=== PATIENT | male | born 1950 | race Hispanic/Latino ===

== ENCOUNTER 2024-07-27 10:25 | Emergency (ER) | payer MEDICARE ==
[~2024-07-27] VITALS: Ht 165.1 cm; Wt 83.5 kg
[2024-07-27 10:33] VITALS: TEMP 97.8
[2024-07-27 10:58] VITALS: PULSE 62; RESP 16
[2024-07-27] MEDS ORDERED: AMOX TR-K CLV1 EAC2 PO (11:00)
[2024-07-27] MEDS ORDERED: DOXYCYCLINE HY100 MG PO (11:00)
[2024-07-27] MEDS ORDERED: ULTRAM 50MG50 MG PO (11:21)
[2024-07-27 11:43] VITALS: BP 140/68; PULSE 74; RESP 16; TEMP 98.4; O2SAT 100
== END 2024-07-27 11:55 | disposition home or self-care (01) ==
LOC: ER 10:36
DX: E11.628 Type 2 diabetes mellitus with other skin complications (principal); L03.031 Cellulitis of right toe; E11.621 Type 2 diabetes mellitus with foot ulcer; I10 Essential (primary) hypertension; E78.5 Hyperlipidemia, unspecified; I25.10 Atherosclerotic heart disease of native coronary artery without angina pectoris; M10.9 Gout, unspecified; Z95.1 Presence of aortocoronary bypass graft
CPT/HCPCS: 99283